=== PATIENT | male | born 1965 | race African-American/Black ===

== ENCOUNTER 2017-05-30 08:08 | Emergency (ER) | payer MEDICAID ==
[~2017-05-30] VITALS: Ht 172.7 cm; Wt 91.0 kg
[2017-05-30 10:09] LABS: BASOPHILS % 0.9 % (0.0-2.0); EOSINOPHILS % 3.1 % (0.0-5.0); HEMATOCRIT. 46.1 % (42.0-52.0); HEMOGLOBIN. 15.9 g/dL (14.0-18.0); LYMPHOCYTES % 38.2 % (20.0-50.0); MEAN CORPUSCULAR HEMOGLOBIN 29.7 pg (28.0-32.0); MEAN CORPUSCULAR VOLUME 86.1 fL (80.0-94.0); MEAN PLATELET VOLUME 10.1 fl (7.4-10.4); MONOCYTES % 6.7 % (2.0-8.0); NEUTROPHILS % 51.1 % (40.0-76.0); PLATELET 146 x1000/uL (130-400); RED BLOOD CELL COUNT 5.36 mill/uL (4.7-6.1); RED CELL DISTRIBUTION WIDTH 13.6 % (11.6-14.6)
[2017-05-30 10:12] LABS: CHLORIDE 104 mEq/L (98-107)
[2017-05-30 10:13] LABS: PROTHROMBIN TIME 10.5 sec (9.4-11.6)
[2017-05-30 11:13] VITALS: BP 148/88
== END 2017-05-30 11:15 | disposition home or self-care (01) ==
LOC: ER 08:23
DX: K92.1 Melena (principal); I10 Essential (primary) hypertension
CPT/HCPCS: 36415; 80053; 83690; 85025; 85610; 99284

== ENCOUNTER 2019-12-18 10:34 | Emergency (ER) | payer MEDICAID ==
[~2019-12-18] VITALS: Ht 172.7 cm; Wt 90.0 kg
[2019-12-18] MEDS ORDERED: KETOROLAC 30MG/ML VIAL IM ONE (11:15)
[2019-12-18 11:59] VITALS: BP 138/87
== END 2019-12-18 12:49 | disposition home or self-care (01) ==
LOC: ER 10:34
DX: S30.0XXA Contusion of lower back and pelvis, initial encounter (principal); S60.212A Contusion of left wrist, initial encounter; W25.XXXA Contact with sharp glass, initial encounter; Y93.89 Activity, other specified; Y92.89 Other specified places as the place of occurrence of the external cause; I10 Essential (primary) hypertension; E11.9 Type 2 diabetes mellitus without complications
CPT/HCPCS: 73110; 96372; 99283; J1885